=== PATIENT | female | born 1955 | race African-American/Black ===

== ENCOUNTER 2019-08-30 20:59 | Emergency (ER) | payer OTHER | END 2019-08-30 22:20 | disposition home or self-care (01) | LOC: ERS 20:59 | DX: R05 Cough (principal) | CPT/HCPCS: 87804; 99283 ==

== ENCOUNTER 2019-09-02 15:53 | Inpatient (IN) | payer OTHER ==
[2019-09-02 16:49] LABS: Hemoglobin 13.5 g/dL (12.0-16.0); Mean Corpuscular HGB CONC 33.5 g/dL (32.0-36.0); Mean Corpuscular Hemoglobin 30.6 pg (27.0-31.0); Mean Corpuscular Volume 91.2 fL (78.0-98.0); Mean Platelet Volume 8.6 fL (7.4-10.4); Platelet Count 309 thou/uL (130-400); RBC Distribution Width 13.5 % (11.5-14.5); Red Blood Cell (RBC) Count 4.42 mill/uL (4.20-5.40); White Blood Cell (WBC) Count 12.9 thou/uL (4.8-10.8)
--- NOTE | 2019-09-02 17:00 | RAD ---
Chest AP view INDICATION: History of shaking and coughing COMPARISON: None FINDINGS: Lungs: No airspace consolidation is evident. There is slight coarsening of the lung markings possibl y related to underlying fibrotic change. Cardiac silhouette: The cardiomediastinal silhouette appears within normal limits. There are vascula r calcifications involving the aortic arch. Pulmonary vasculature: Normal Pleural spaces: No pleural effusion or pneumothorax is demonstrated. Upper abdomen: No abnormality seen. Osseous structures: No acute osseous abnormality. Additional findings: None. IMPRESSION: No acute cardiopulmonary abnormality.
[2019-09-02 17:10] LABS: Band 20 % (5-11); Lymphocytes 4 % (21-51); MDiff Complete? YES; Monocytes 3 % (0-10); Neutrophil 68 % (42-75); Platelet Morphology Comment Appears Adequate; Polychromasia SLIGHT = 2-3 cells (100X) (0-2/hpf); Reactive Lymphocytes 5 % (0-10)
[2019-09-02 17:13] LABS: ALT (SGPT) 21 U/L (8-55); AST (SGOT) 29 U/L (5-34); Albumin 3.9 g/dL (3.4-4.8); Alkaline Phosphatase 63 U/L (40-110); Anion Gap 19 mmol/L (10-20); BUN (Urea Nitrogen) 32 mg/dL (9.8-20.1); Bilirubin, Total 0.9 mg/dL (0.2-1.2); CK (CPK) 144 U/L (29-168); Calc. Creatinine Clearance 0 mL/min (70-130); Calcium 9.4 mg/dL (7.8-10.44); Carbon Dioxide 19 mmol/L (23-31); Chloride 99 mmol/L (98-107); Estimated GFR-MDRD 29; Glucose 189 mg/dL (80-115); Potassium 3.7 mmol/L (3.5-5.1); Protein, Total 9.9 g/dL (6.0-8.3); Sodium 133 mmol/L (136-145)
--- NOTE | 2019-09-02 17:33 | CT ---
CT Brain WO Con: 09/02/2019 4:54 PM CLINICAL HISTORY: Altered mental status. IMAGING TECHNIQUE: Multiple CT images were obtained of the brain without IV contrast. COMPARISON: CT the brain dated February 15, 2012. FINDINGS: Brain: No acute infarct or hemorrhage is evident. No midline shift. Ventricles: Normal. No hydrocephalus. There is worsening moderate to severe chronic small vessel whi te matter ischemic change. Skull: Intact. Visualized Paranasal sinuses: Clear. Mastoid air cells:Clear. Extracranial soft tissues:Normal. IMPRESSION: No acute intracranial abnormality. Worsening moderate to severe chronic small vessel white matter see n to change.
[2019-09-02] MEDS ORDERED: cefTRIAXone\\ROCEPHIN 2 GM VIAL ONE (17:38)
[2019-09-02] MEDS ORDERED: Ondansetron PF 4 MG/2 ML Vial ONE (17:38)
[2019-09-02] MEDS ORDERED: Acetaminophen 500 MG TAB ONE (17:38)
[2019-09-02 18:45] LABS: Bilirubin Negative (Negative); Blood, Urine 1+ (Negative); Clarity Turbid (Clear); Glucose, Urine (Dipstick) Normal (Negative); Leukocyte 25 Leu/uL (Negative); Nitrite Negative (Negative); Protein, Urine (Dipstick) 100 mg/dL (Neg-Trace); Squamous Epithelial 0-3 HPF (0-3); Urobilinogen Normal mg/dL (Less than 2)
[2019-09-02 18:46] LABS: Bacteria/HPF 1+ HPF (None Seen)
--- NOTE | 2019-09-02 19:44 | CT ---
CT THORAX WITHOUT IV CONTRAST: Indication: Fever, cough. FINDINGS: There are scattered areas of peripheral ground-glass nodular opacities seen in a bronchovascular dist ribution, suspicious for changes of scattered bronchopneumonia. This affects all lobes of the lung. C onsolidation is seen in the medial right upper and right middle lobes. No pleural effusion is eviden t. There are calcified lymph nodes within the left infrahilar region. There are scattered vascular ca lcifications involving the thoracic aorta and coronary arteries. The visualized upper abdomen demonst rates normal appearance of the adrenal glands. The spleen is normal in size. There are scattered degenerative and osteoarthritic change. No definite acute osseous abnormality is evident. IMPRESSION: 1. Scattered areas of peripheral ground-glass and reticular nodularity seen in a bronchovascular may lazaro, consistent with changes of bronchopneumonia. More prominent airspace opacity and consolidation i s seen within the medial right upper lobe as well as portions of the medial right middle lobe. 2. Scattered paraseptal emphysema. 3. Findings of prior granulomatous disease. POS: BH
[2019-09-02] MEDS ORDERED: Senokot S 8.6-50 MG TAB PO PRN (20:02)
[2019-09-02] MEDS ORDERED: Ondansetron PF 4 MG/2 ML Vial IVP PRN (20:02)
[2019-09-02] MEDS ORDERED: Guaifenesin DM 100-10/5 ML UDCUP PO PRN (20:02)
[2019-09-02] MEDS ORDERED: Acetaminophen 325 MG TAB PO PRN (20:02)
[2019-09-02] MEDS ORDERED: Bisacodyl 10 MG SUPP PR PRN (20:02)
[2019-09-02 20:18] LABS: Hemoglobin A1c 5.5 % (4.0-6.0)
[2019-09-02 20:21] LABS: Platelet Count 309 thou/uL (130-400)
[2019-09-02 20:22] LABS: Fibrinogen 687 mg/dL (253-463)
[2019-09-02 20:23] LABS: INR-International Normal Ratio 1.2; PTT 28.6 SEC (22.9-36.1); Prothrombin Time 14.8 SEC (12.0-14.7)
[2019-09-02 20:24] LABS: D-Dimer Test 3.93 *mcg/mL (0.27-0.43)
[2019-09-02 20:30] LABS: Lactic Acid 0.7 mmol/L (0.5-2.2)
[2019-09-02 20:43] LABS: FSP-Qualitative ABNORMAL (Normal); FSP-Semiquantitative >=5 & <20 mcg/mL (Less than 5)
--- NOTE | 2019-09-02 20:57 | HP ---
REASON FOR ADMISSION: Sepsis, acute kidney injury; viral syndrome; severe dehydration; pneumonia, bilateral; and acute metabolic encephalopathy. HISTORY OF PRESENTING ILLNESS: Patient gives history of feeling cold with chills from last 3 days. She has had cough with expectoration of white phlegm. She states she did not eat from last 5 days as she had severe nausea and had been vomiting as well. No complaints of diarrhea. No complaints of abdominal pain as such. 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 She states she has not had any contact with any sick contacts. She lives alone. She went to work this morning and was sent over to the ER as she was getting confused with chills, rigors, and fever. On arrival here, patient had a temperature of 100 degrees. She has bilateral pneumonia as well on the CAT scan. Patient needs sometimes prompting for verbal questions to be answered. Denies any urinary frequency or urgency. She in fact denies any medical history at all in the past. PAST MEDICAL AND SURGICAL HISTORY: Umbilical hernia repair. She thinks she might have had a colonoscopy long back. CURRENT MEDICATIONS: None. ALLERGIES: NO KNOWN DRUG ALLERGIES. PERSONAL HISTORY: Does not abuse alcohol or drugs. No history of smoking. 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 She stays alone. Ambulates by herself. FAMILY HISTORY: Mother at the age of 79 from an unknown cancer. Father is currently living. He is in [place]. CODE STATUS: Full. Power of sill worker is her daughter, Ms. Cecy Glynn. REVIEW OF SYSTEMS: CONSTITUTIONAL: Negative for weight loss or gain, ability to conduct usual activities. SKIN: Negative for rash, itching. EYES: Negative for double vision, pain. ENT/MOUTH: Negative for nose bleeding, neck stiffness, pain, tenderness. CARDIOVASCULAR: Negative for palpitations, dyspnea on exertion, orthopnea. RESPIRATORY: Negative for shortness of breath, wheezing, cough, hemoptysis, fever or night sweats. GASTROINTESTINAL: Negative for poor appetite, abdominal pain, heartburn, nausea , vomiting, constipation, or diarrhea. GENITOURINARY: Negative for urgency, frequency, dysuria, nocturia. MUSCULOSKELETAL: Negative for pain, swelling. NEUROLOGIC/PSYCHIATRIC: Negative for anxiety, depression. ALLERGY/IMMUNOLOGIC: Negative for skin rash, bleeding tendency. PHYSICAL EXAMINATION: GENERAL: Patient is a 64-year-old female, who is currently in mild distress from fever. VITAL SIGNS: Blood pressure 148/86, pulse 126 per minute, respiratory rate 18 per minute, temperature 100.3 degrees Fahrenheit, and saturating 96% on room air. NECK: Supple. No elevated JVD. HEENT: Eyes; extraocular muscles intact. Pupils reacting to light. Oral cavity, mucous membranes are dry. No exudates or congestion. CARDIOVASCULAR SYSTEM: S1 , S2 heard. Regular rhythm, tachycardic. RESPIRATORY SYSTEM: Air entry 1+ bilateral. Scattered rhonchi plus bilateral. No wheezes. ABDOMEN: Soft. Bowel sounds heard. No tenderness, rigidity, or guarding. EXTREMITIES: No peripheral edema or calf tenderness. VASCULAR SYSTEM: Peripheral pulses 1+ bilateral. No ischemic ulcerations or gangrene. CENTRAL NERVOUS SYSTEM: No gross focal deficits noted. Patient is awake, but lethargic. PSYCHIATRIC SYSTEM: No obvious hallucinations or delusions. LABORATORY DATA: White count of 12.9, H and H 13 and 40, platelet count is 309 , MCV is 91 with 68% neutrophils, 20% bands, 4% lymphocytes, and 5% reactive lymphocytes. Serum bicarb is 19, BUN 32, creatinine 2.1, sodium 133, and serum glucose 189. HbA1c 5.5. Lactic acid 3.5. Liver enzymes within normal limits. CRP is 18.5, albumin 3.9. UA shows 1+ bacteria. Influenza A and B antigens are negative. CT chest done, shows scattered peripheral ground-glass and reticular nodularity seen in bronchovascular pattern consistent with bronchopneumonia. There is more prominent airspace opacity and consolidation seen in the medial right upper lobe as well as portions of the medial right middle lobe. CT brain shows no acute intracranial abnormality. CLINICAL IMPRESSION AND PLAN: The patient will be admitted to telemetry for sepsis, bilateral pneumonia with viral illness, metabolic acidosis, acute kidney injury, [id number] dehydration, acute metabolic encephalopathy. Blood and urine cultures have been obtained in the ER. She will be on Zithromax and ceftriaxone. Initial flu test is negative. Respiratory virus panel PCR has been ordered from ER. The ER physician is also looking into whether patient is a candidate for COVID- 19 testing. We will keep her on droplet and air bone precautions for now. She has received 30 mL/kg of IV fluid resuscitation in the ER for sepsis. We will continue her on normal saline at 100 mL per hour. We will also obtain urine for strep pneumo antigen and Legionella antigen along with respiratory cultures as well. We will continue to closely monitor her on telemetry for now. Job ID: [id number]
[2019-09-02] MEDS ORDERED: Azithromycin 500 MG VIAL ONE (22:25)
[2019-09-02] MEDS: Sodium Chloride 0.45% 1,000 ML IV SCH (22:28)
[2019-09-02] MEDS: Azithromycin 500 MG in Sodium Chloride 0.9% 250 ML 250 ML IVPB SCH (22:34)
[2019-09-03 04:01] VITALS: BMI 19.8
[2019-09-03 05:16] LABS: #Eosinphils 0.1 thou/uL (0.0-0.7); #Lymphocytes 2.3 thou/uL (1.20-3.40); #Monocytes 0.8 thou/uL (0.11-0.59); %Basophils 0.3 % (0.0-1.0); %Eosinophils 0.7 % (0.0-10.0); %Lymphocytes 18.7 % (21.0-51.0); %Monocytes 6.4 % (0.0-10.0); %Neutrophils 73.9 % (42.0-75.0); Hemoglobin 10.9 g/dL (12.0-16.0); Mean Corpuscular HGB CONC 32.7 g/dL (32.0-36.0); Mean Corpuscular Hemoglobin 29.9 pg (27.0-31.0); Mean Corpuscular Volume 91.7 fL (78.0-98.0); Mean Platelet Volume 8.3 fL (7.4-10.4); Platelet Count 313 thou/uL (130-400); RBC Distribution Width 13.4 % (11.5-14.5); Red Blood Cell (RBC) Count 3.64 mill/uL (4.20-5.40); White Blood Cell (WBC) Count 12.2 thou/uL (4.8-10.8)
[2019-09-03 05:53] LABS: ALT (SGPT) 22 U/L (8-55); AST (SGOT) 32 U/L (5-34); Albumin 2.9 g/dL (3.4-4.8); Alkaline Phosphatase 53 U/L (40-110); Anion Gap 13 mmol/L (10-20); BUN (Urea Nitrogen) 26 mg/dL (9.8-20.1); Bilirubin, Total 0.4 mg/dL (0.2-1.2); Calc. Creatinine Clearance 47 mL/min (70-130); Calcium 8.2 mg/dL (7.8-10.44); Carbon Dioxide 19 mmol/L (23-31); Chloride 110 mmol/L (98-107); Estimated GFR-MDRD 59; Globulin 4.6 g/dL (2.4-3.5); Glucose 108 mg/dL (80-115); Potassium 3.4 mmol/L (3.5-5.1); Protein, Total 7.5 g/dL (6.0-8.3); Sodium 139 mmol/L (136-145)
[2019-09-03] MEDS: Enoxaparin Sodium 30 MG/0.3 ML SYRINGE SC SCH (08:44)
[2019-09-03] MEDS: Famotidine 20 MG TAB PO SCH (08:44)
[2019-09-03] MEDS: Sodium Chloride 0.45% 1,000 ML IV SCH ×2 (10:18→22:15)
--- NOTE | 2019-09-03 11:38 | PDOC.HOSPP ---
- Subjective Encounter Date: 09/03/19 Encounter Time: 10:30 Subjective: this morning she is awake, oriented well, has no sob has cough mostly dry - Objective Vital Signs & Weight: Vital Signs (12 hours) Temp Pulse Resp BP Pulse Ox 09/03/19 08:50 98.0 F 78 20 128/87 97 09/03/19 05:03 97.7 F 82 24 H 142/94 H 99 09/03/19 00:58 97.9 F 87 22 H 133/91 H 97 Weight Weight 127 lb Result Diagrams: 09/03/19 04:49 09/03/19 04:49 Additional Labs: Accuchecks 09/02/19 16:02 POC Glucose 172 H Hospitalist ROS - Medication Medications: Active Medications Generic Name Dose Route Start Last Admin Trade Name Freq PRN Reason Stop Dose Admin Enoxaparin Sodium 30 mg 09/03/19 09:00 09/03/19 08:44 Lovenox SC 30 mg 0900 THERESA Administration Famotidine 20 mg 09/03/19 09:00 09/03/19 08:44 Pepcid PO 20 mg DAILY THERESA Administration Sodium Chloride 1,000 mls @ 100 mls/hr 09/02/19 20:15 09/03/19 10:18 1/2 Normal Saline IV 1,000 mls .Q10H THERESA Administration Azithromycin 500 mg/ Sodium 250 mls @ 250 mls/hr 09/02/19 21:00 09/02/19 22: 34 Chloride IVPB 250 mls 2100 THERESA Administration - Exam General Appearance: awake alert Eye: PERRL, anicteric sclera ENT: no oropharyngeal lesions, moist mucosa Neck: supple, no JVD Heart: RRR, no murmur Respiratory: no wheezes, no rales Gastrointestinal: soft, non-tender, non-distended, normal bowel sounds Extremities: no cyanosis, no edema Neurological: cranial nerve grossly intact, no focal deficits Psychiatric: normal affect, A&O x 3 Hosp A/P (1) Sepsis Code(s): A41.9 - SEPSIS, UNSPECIFIED ORGANISM Status: Acute Qualifiers: Sepsis type: sepsis due to unspecified organism (2) PNA (pneumonia) Code(s): J18.9 - PNEUMONIA, UNSPECIFIED ORGANISM Status: Acute Qualifiers: Pneumonia type: due to unspecified organism Laterality: bilateral (3) JAQUELINE (acute kidney injury) Code(s): N17.9 - ACUTE KIDNEY FAILURE, UNSPECIFIED Status: Acute (4) Metabolic acidosis Code(s): E87.2 - ACIDOSIS Status: Acute (5) Acute metabolic encephalopathy Code(s): G93.41 - METABOLIC ENCEPHALOPATHY Status: Resolved - Plan is on azithromycin and ceftriaxone, nebs, iv fluids renal function is almost normal this am encephalopathy is clearing up quickly pcr for blanco virus is pending encourage po intake will mobilize with PT from am
[2019-09-03] MEDS: cefTRIAXone\\ROCEPHIN 2 GM in Sodium Chloride 0.9% 100 ML IVPB SCH (18:48)
--- NOTE | 2019-09-03 20:07 | CON ---
DATE OF CONSULTATION: 09/03/2019 REASON FOR CONSULTATION: Pneumonia, concern with COVID-19. 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 No headaches. No diarrhea. Apparently, got some confusional state and colleague brought her to the emergency room. On arrival, her temperature was 100. She had abnormal findings on CT scan of chest as noted below. Past medical history of umbilical hernia repair, colonoscopy. She also recalled having seen me in the clinic before and when I went to look in my record, it looks like she was HIV positive back in 2016. After donating plasma, I checked her viral load, it was 12,200. The CD4 cell count was 243 and I had started her on antiretroviral therapy, but never saw her back in the clinic. She obviously is in denial regarding this diagnosis. Unfortunately, had not been taking any medication. ALLERGIES: NONE. SOCIAL HISTORY: Works at the [employer]. Lives alone. She is a smoker up until 2 weeks ago. FAMILY HISTORY: Cancer, unknown type. CURRENT MEDICATIONS: 1. Azithromycin. 2. Ceftriaxone. 3. Enoxaparin. PHYSICAL EXAMINATION: VITAL SIGNS: T-max 98, blood pressure 140/90, pulse 83, respirations 20, O2 saturation 98%. SKIN: Normal. There is no lymphadenopathy. HEENT: Ocular movements conjugate. Some element of temporal wasting. Oral cavity with no thrush. NECK: Supple. LUNGS: Symmetric. Clear breath sounds. A few scattered inspiratory crackles. HEART: S1 and S2. Regular rate. ABDOMEN: Soft, not distended or tender. No ascites. No bladder distention. No organomegaly. EXTREMITIES: No joint inflammatory activity. Pulses 1+ in dorsalis pedis. No edema. Plantar responses are flexor. Moves all extremities equally. NEUROLOGIC: Cognitive function, she is awake, oriented, recognizes her daughter in the room. LABORATORY DATA: White cell count 12.9 and 12.2, hemoglobin 13 and 10, MCV 91, platelets 313 with 20% bands on arrival. Total lymphocyte count 2.3. INR 1.2. Sodium 139, creatinine 1.13, which is better than on arrival. Liver panel normal. Serum total protein 9.9, albumin 3.9, globulin 6.0. Urinalysis, 4 to 6 wbc's and protein 100. Respiratory virus PCR panel was nothing detected. Two sets of blood culture, no growth. CT of chest with scattered areas of ground-glass, reticulonodular, bronchovascular pattern, paraseptal emphysema, prior granulomatous disease. 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 Brain CT from admission with no acute intracranial abnormality. ASSESSMENT: Longstanding human immunodeficiency virus infection since 2016 at least without proper treatment due to denial on the part of the patient who does not acknowledge her diagnosis. She believes that the sample that showed the positive serology for human immunodeficiency virus was from somebody else, but that is not true. I repeated the test in my office, which confirmed her viremia and a low CD4 cell count. I started her on antiretroviral therapy, but she decided to not show up again and now she presents with likely advanced immunosuppression, possibly Pneumocystis pneumonia. We will submit workup for opportunistic processes including Pneumocystis, started on Bactrim and antiretroviral therapy. She is already on isolation for COVID-19, but I believe that is not likely. We will have to keep her on isolation until the COVID test returns, but she has a low probability for that. Job ID: [id number]
[2019-09-03] MEDS: Raltegravir Potassium 400 MG TAB PO SCH (22:14)
[2019-09-03] MEDS: Sulfameth/Trimethoprim DS 800-160mg TAB PO SCH (22:14)
[2019-09-03] MEDS: Azithromycin 500 MG in Sodium Chloride 0.9% 250 ML 250 ML IVPB SCH (22:14)
[2019-09-04] MEDS: Enoxaparin Sodium 30 MG/0.3 ML SYRINGE SC SCH (09:29)
[2019-09-04] MEDS: Famotidine 20 MG TAB PO SCH (09:29)
[2019-09-04] MEDS: Raltegravir Potassium 400 MG TAB PO SCH ×2 (09:29→20:21)
[2019-09-04] MEDS: Sulfameth/Trimethoprim DS 800-160mg TAB PO SCH ×3 (09:30→20:21)
[2019-09-04] MEDS: Emtricitabine/Tenofovir 200-300 MG TAB PO SCH (09:30)
[2019-09-04] MEDS: Sodium Chloride 0.45% 1,000 ML IV SCH ×2 (09:32→15:09)
--- NOTE | 2019-09-04 13:11 | PDOC.HOSPP ---
- Subjective Encounter Date: 09/04/19 Encounter Time: 11:00 Subjective: breathing better, no chest pain or palp is amb in room had diarrhea from last evening, watery with no blood in it. no fever - Objective Vital Signs & Weight: Vital Signs (12 hours) Temp Pulse Resp BP BP Pulse Ox 09/04/19 11:16 98.4 F 66 16 145/86 H 99 09/04/19 08:25 98.1 F 78 18 118/81 95 09/04/19 04:42 98.2 F 76 20 121/80 98 Weight Admit Weight 127 lb Weight 127 lb I&O: 09/03/19 09/04/19 09/05/19 06:59 06:59 06:59 Intake Total 1444 300 Balance 1444 300 Result Diagrams: 09/03/19 04:49 09/03/19 04:49 Hospitalist ROS - Medication Medications: Active Medications Generic Name Dose Route Start Last Admin Trade Name Nathanaelq PRN Reason Stop Dose Admin Emtricitabine/Tenofovir 1 tab 09/04/19 09:00 09/04/19 09:30 Truvada PO 1 tab DAILY THERESA Administration Enoxaparin Sodium 30 mg 09/03/19 09:00 09/04/19 09:29 Lovenox SC 30 mg 0900 THERESA Administration Famotidine 20 mg 09/03/19 09:00 09/04/19 09:29 Pepcid PO 20 mg DAILY THERESA Administration Sodium Chloride 1,000 mls @ 100 mls/hr 09/02/19 20:15 09/04/19 09:32 1/2 Normal Saline IV 1,000 mls .Q10H THERESA Administration Azithromycin 500 mg/ Sodium 250 mls @ 250 mls/hr 09/02/19 21:00 09/03/19 22: 14 Chloride IVPB 250 mls 2100 THERESA Administration Ceftriaxone Sodium 2 gm/ 100 mls @ 200 mls/hr 09/03/19 18:00 09/03/19 18:48 Sodium Chloride IVPB 100 mls 1800 THERESA Administration Raltegravir 400 mg 09/03/19 21:00 09/04/19 09:29 Isentress PO 400 mg BID THERESA Administration Trimethoprim/Sulfamethoxazole 1 tab 09/03/19 21:00 09/04/19 09:30 Bactrim Ds PO 1 tab TID THERESA Administration - Exam General Appearance: NAD, awake alert Eye: PERRL, anicteric sclera ENT: no oropharyngeal lesions, moist mucosa Neck: supple, no JVD Heart: RRR, no murmur Respiratory: no wheezes, no rales, rhonchi Gastrointestinal: soft, non-tender, non-distended, normal bowel sounds Extremities: no cyanosis, no edema Neurological: cranial nerve grossly intact, no focal deficits Psychiatric: A&O x 3 Hosp A/P (1) Sepsis Code(s): A41.9 - SEPSIS, UNSPECIFIED ORGANISM Status: Acute Qualifiers: Sepsis type: sepsis due to unspecified organism (2) PNA (pneumonia) Code(s): J18.9 - PNEUMONIA, UNSPECIFIED ORGANISM Status: Acute Qualifiers: Pneumonia type: due to Pneumocystis jirovecii Laterality: bilateral (3) JAQUELINE (acute kidney injury) Code(s): N17.9 - ACUTE KIDNEY FAILURE, UNSPECIFIED Status: Resolved (4) Metabolic acidosis Code(s): E87.2 - ACIDOSIS Status: Resolved (5) Acute metabolic encephalopathy Code(s): G93.41 - METABOLIC ENCEPHALOPATHY Status: Resolved (6) HIV disease Code(s): B20 - HUMAN IMMUNODEFICIENCY VIRUS [HIV] DISEASE Status: Acute - Plan Pt is HIV +ve from 2016 and never revealed her diagnosis until consultation Has not taken HIV meds at all per patient. Counselled that her diagnosis is true and she should be taking her meds as prescribed to prevent hospitalization and possibly early . is on bactrim, azithromycin, ceftriaxone, nebs renal function is almost normal this am encephalopathy resolved HIV viral load, cd4 count is pending pcr for blanco virus is pending encourage po intake
[2019-09-04] MEDS: cefTRIAXone\\ROCEPHIN 2 GM in Sodium Chloride 0.9% 100 ML IVPB SCH (18:25)
[2019-09-04] MEDS: Azithromycin 500 MG in Sodium Chloride 0.9% 250 ML 250 ML IVPB SCH (20:21)
[2019-09-05] MEDS: Sodium Chloride 0.45% 1,000 ML IV SCH (01:02)
[2019-09-05] MEDS: Emtricitabine/Tenofovir 200-300 MG TAB PO SCH (08:47)
[2019-09-05] MEDS: Raltegravir Potassium 400 MG TAB PO SCH (08:47)
[2019-09-05] MEDS: Sulfameth/Trimethoprim DS 800-160mg TAB PO SCH (08:48)
[2019-09-05] MEDS: Enoxaparin Sodium 30 MG/0.3 ML SYRINGE SC SCH (08:48)
[2019-09-05] MEDS: Famotidine 20 MG TAB PO SCH (08:48)
[2019-09-05 09:33] VITALS: BP 131/94; TEMP 98.1
[2019-09-05 14:13] LABS: %CD4 (Helper/Inducer) 10.4 % (30.8-58.5); Absolute CD4 208 /uL (359-1519); Total Lymphocyte 29 % (Not Estab.); WBC Total Count 6.8 x10E3/uL (3.4-10.8)
--- NOTE | 2019-09-05 20:40 | DIS ---
DATE OF ADMISSION: 09/02/2019 DATE OF DISCHARGE: 09/05/2019 REASON FOR HOSPITALIZATION: Shortness of breath. SIGNIFICANT FINDINGS: The patient was found to have uncontrolled HIV with Pneumocystis pneumonia infection. PROCEDURES PERFORMED AND TREATMENTS RENDERED: The patient was admitted to the medical unit with telemetry for close management, please see full history and physical for details. The patient diagnosed with pneumonia secondary to PCP or Pneumocystis jiroveci pneumonia secondary to uncontrolled HIV infection. The patient was seen and evaluated by Infectious Disease specialist, Dr. Sheridan, please see full consultation notes for details. The patient, having previously diagnosed with HIV infection in 2016, did have one appointment with Dr. Sheridan in the outpatient clinic, I discussed the case with him at length. Dr. Sheridan states that the patient did not continue to have followup and did not take her antiviral therapy as directed. The patient has not taken her disease seriously and is in denial of the fact that she has HIV disease. Despite the efforts of Dr. Sheridan years ago to convince the patient that she does have HIV and she has a treatable condition with medications, she has continued to not follow up. The patient states that she believes that somebody else's blood was tested rather than her blood, I assured her that this is not the case and HIV infection is accurate. The patient with CT scan of the chest showing scattered areas of peripheral ground-glass and reticular nodularity seen in the bronchovesicular pattern consistent with changes of bronchopneumonia. This was consistent with the clinical picture of HIV with a CD4 count of 208. The patient was started on antiviral therapy with HAART per Dr. Sheridan. The patient was started on appropriate antibiotic therapy with treatment dose of Bactrim. The patient having a good response and pulmonary symptoms did improve. The patient was seen and evaluated by myself on 09/05/2019, and she is sitting up in bed, breathing comfortably on room air. The patient is ambulating to and from the restroom without difficulties. The patient states that she is feeling significantly better and she is going to go home. I offered extensive counseling and told her of the fact that she does have a treatable condition of HIV and that with medications prescribed by Dr. Sheridan in the outpatient clinic she can have control over this disease and it will not cause her future complications including, but not limited to, worsening of pneumonias, brain infections, blood infections, and even . The patient understands these risks and states that she will follow up with Dr. Sheridan in the outpatient setting. I discussed the importance of compliance with antiviral therapy and antibiotic therapy to avoid resistance of HIV. Also of note, the patient was concerned that she might have COVID-19 virus, her serologies came back to be negative. Dr. Sheridan stating that she is very unlikely to have COVID-19 even prior to serology PCR which was found to be negative. The patient did not have adequate exposure to COVID-19 and there was very low clinical suspicion from initial admission to the hospital. Due to the fact that the patient was breathing comfortably on room air, she has been afebrile, she has been ambulating without difficulties, and she was cleared by Infectious Disease specialist, she was recommended safe for discharge with close followup in the outpatient setting. I sent the prescriptions to the patient's preferred pharmacy for her convenience. CONDITION ON DISCHARGE: Stable. SPECIFIC INSTRUCTIONS FOR THE PATIENT/FAMILY: 1. The patient is recommended to take all medications as directed - or return to acute care hospital immediately if unable to get her medicines. 2. The patient is recommended to follow up with primary care physician in the next 5 to 7 days, or return to acute care hospital immediately if unable to be seen. 3. The patient is recommended to follow up with infectious disease specialist, Dr. Sheridan, in the next 1 to 2 weeks, or return to acute care hospital immediately if unable to be seen. 4. The patient is recommended to return to acute care hospital immediately if signs or symptoms return, worsen, or any other new symptoms occur. 5. The patient is recommended to return to acute care hospital immediately if she is unable to comply with any of the previously mentioned steps. DISCHARGE MEDICATIONS: 1. Bactrim DS one tablet p.o. t.i.d. for 21 days total course. 2. Isentress 400 mg one tablet p.o. b.i.d. 3. Truvada one tablet p.o. daily. 4. Azithromycin 1200 mg one tablet p.o. q.7 days. 5. Albuterol HFA rescue inhaler 2 puffs p.o. q.4 hours p.r.n. shortness of breath or wheezing. Greater than 39 minutes spent coordinating care and discharge process for this patient. Job ID: [id number]
--- NOTE | 2019-09-07 09:50 | EKG ---
Test Reason : Blood Pressure : / mmHG Vent. Rate : 123 BPM Atrial Rate : 123 BPM P-R Int : 146 ms QRS Dur : 074 ms QT Int : 328 ms P-R-T Axes : 080 004 060 degrees QTc Int : 469 ms Sinus tachycardia Right atrial enlargement Anteroseptal infarct , age undetermined Abnormal ECG Confirmed by SHERIN CAMERON ([id number]), graphics editor MELVIN ROGERS ([id number]) on 09/07/2019 9:50:14 AM Referred By: Confirmed By:SHERIN CAMERON
== END 2019-09-05 15:00 | disposition home or self-care (01) | DRG 974 ==
LOC: ERS 15:53 → ERHOLD 19:35 → 2SE 09-03 00:57
PROVIDERS: ADMIT Internal Medicine; ATTEND Internal Medicine
DX: B20 Human immunodeficiency virus [HIV] disease (principal); A41.9 Sepsis, unspecified organism; J18.0 Bronchopneumonia, unspecified organism; G93.41 Metabolic encephalopathy; B59 Pneumocystosis; N17.9 Acute kidney failure, unspecified; E87.2 Acidosis; E86.0 Dehydration
CPT/HCPCS: 36415; 36416; 70450; 71045; 71250; 80053; 81003; 81015; 82274; 82550; 83036; 83605; 85025; 85048; 85049; 85300; 85362; 85379; 85384; 85610; 85730; 86140; 86361; 87040; 87086; 87324; 87449; 87536; 87633; 87804; 87899; 93005; 99283; A4353; J0456; J0696; J1650; J2405; J3490; J7050; U0001